=== PATIENT | female | born 1950 | race Caucasian/White ===

== ENCOUNTER 2018-06-17 10:28 | Outpatient (CLI) | payer OTHER ==
--- NOTE | 2018-06-21 10:43 | CT ---
CT HEART WITHOUT CONTRAST: CALCIUM SCORING: HISTORY: Chest pain. FINDINGS: TOTAL CALCIUM SCORE USING AJ-130 METHOD: 161 LEFT MAIN: 0 RCA: 76 LAD: 46 LCX: 34 PDA: 5 The visualized lung dan are unremarkable. There are degenerative changes in the spine. No pleura l or pericardial effusions are seen. The total calcium score has increased from 129 on 04/05/2016 to 161 on the current exam. IMPRESSION: Total calcium score is 161. Definite, at least moderate, atherosclerotic plaque. Mild coronary janette ry disease highly likely. Significant narrowings are possible. POS: OFF
== END 2018-06-17 10:29 | disposition home or self-care (01) ==
LOC: BICCT 10:28
PROVIDERS: ATTEND Internal Medicine Interventional Cardiology
DX: R07.9 Chest pain, unspecified (principal); I25.10 Atherosclerotic heart disease of native coronary artery without angina pectoris
CPT/HCPCS: 75571